=== PATIENT | male | born 1990 | race African-American/Black ===

== ENCOUNTER 2019-11-04 06:57 | Emergency (ER) | payer OTHER ==
[~2019-11-04] VITALS: Ht 195.6 cm; Wt 99.8 kg
[2019-11-04 07:35] LABS: ABSOLUTE EOSINOPHILS 0.2 thou/uL (0.0-0.7); ABSOLUTE LYMPHOCYTES 1.9 thou/uL (0.8-5.3); ABSOLUTE MONOCYTES 0.8 thou/uL (0.0-1.2); ABSOLUTE NEUTROPHILS 6.7 thou/uL (1.6-8.1); BASOPHILS 0.3 %; EOSINOPHILS 2.2 %; HEMATOCRIT 42.7 % (42.0-52.0); HEMOGLOBIN 14.6 gm/dL (14.0-18.0); LYMPHOCYTES 20.3 %; MCH 30.5 pg (26.0-34.0); MCHC 34.2 g/dL (28.0-37.0); MCV 89.3 fL (80.0-100.0); MONOCYTES 7.9 %; MPV 8.9 fl. (7.2-11.1); NUCLEATED RBCS 0 /100WBC; PLATELET COUNT* 224 thou/uL (150-400); POLYS 69.3 %; RBC 4.78 mil/uL (4.50-6.00); RDW-CV 13.6 % (10.5-14.5); WBC 9.6 thou/uL (4.0-11.0)
[2019-11-04 07:49] LABS: CALCIUM 8.4 mg/dL (8.5-10.1); CREATININE 1.3 mg/dL (0.6-1.3); POTASSIUM 3.6 mmol/L (3.5-5.1)
[2019-11-04 07:59] LABS: ALBUMIN 3.9 g/dL (3.4-5.0); TOTAL BILIRUBIN 0.5 mg/dL (<0.1-1.0); TOTAL PROTEIN 7.4 g/dL (6.4-8.2)
[2019-11-04 08:27] VITALS: BP 118/70
--- NOTE | 2019-11-04 14:17 | EKG ---
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1990 Requested By: Garrison Hillman Order Number: [id number] MD: Christian Blake Measurements Intervals [place] Rate: 75 P: 97 CO: 183 QRS: 92 QRSD: 99 T: 27 QT: 393 QTc: 439 Interpretive Statements Sinus rhythm Ventricular premature complex Borderline right axis deviation No previous ECG available for comparison Electronically Signed On 11-04-2019 14:16:07 CDT by Christian Blake [email or web address] <ELECTRONICALLY SIGNED> By: Christian Blake MD, [facility] 11/04/19 1416 4 4 Christian Blake MD, FACC /EPI
== END 2019-11-04 08:28 | disposition home or self-care (01) ==
LOC: M.ERS 06:57
PROVIDERS: Family Medicine
DX: R56.9 Unspecified convulsions (principal); I48.91 Unspecified atrial fibrillation

== ENCOUNTER 2019-11-05 06:17 | Observation (INO) | payer OTHER ==
[~2019-11-05] VITALS: Ht 182.9 cm; Wt 72.6 kg
--- NOTE | 2019-11-05 08:06 | NUR ---
SEE DOWNTIME DOCUMENTATION FOR FURTHER DOCUMENTATION
[2019-11-05 08:10] LABS: ABSOLUTE BASOPHILS 0.1 thou/uL (0.0-0.2); ABSOLUTE EOSINOPHILS 0.1 thou/uL (0.0-0.7); ABSOLUTE LYMPHOCYTES 1.9 thou/uL (0.8-5.3); ABSOLUTE MONOCYTES 1.2 thou/uL (0.0-1.2); ABSOLUTE NEUTROPHILS 9.5 thou/uL (1.6-8.1); BASOPHILS 0.7 %; EOSINOPHILS 0.8 %; HEMATOCRIT 46.3 % (42.0-52.0); HEMOGLOBIN 15.5 gm/dL (14.0-18.0); LYMPHOCYTES 14.9 %; MCH 29.7 pg (26.0-34.0); MCHC 33.5 g/dL (28.0-37.0); MCV 88.6 fL (80.0-100.0); MONOCYTES 9.2 %; MPV 9.4 fl. (7.2-11.1); NUCLEATED RBCS 0 /100WBC; PLATELET COUNT* 240 thou/uL (150-400); POLYS 74.4 %; RBC 5.23 mil/uL (4.50-6.00); RDW-CV 14.1 % (10.5-14.5); WBC 12.8 thou/uL (4.0-11.0)
[2019-11-05 08:18] LABS: APTT 26.4 Seconds (25.0-31.3); PROTIME 10.5 Seconds (9.20-11.50)
[2019-11-05 08:22] LABS: URINE BILIRUBIN NEGATIVE (Negative); URINE BLOOD NEGATIVE (Negative); URINE CLARITY CLEAR; URINE COLOR YELLOW; URINE GLUCOSE-RANDOM NEGATIVE (Negative); URINE KETONES TRACE (Negative); URINE LEUKOCYTES-REFLEX NEGATIVE (Negative); URINE NITRITE-REFLEX NEGATIVE (Negative); URINE PROTEIN NEGATIVE (Negative); URINE SPECIFIC GRAVITY 1.025 (1.005-1.030); URINE UROBILINOGEN 0.2 E.U./dl (0.2-1.0)
[2019-11-05 08:29] LABS: AMP/METHAMP Negative (Negative); BARBITURATES Negative (Negative); BENZODIAZEPINES Negative (Negative); COCAINE Negative (Negative); METHADONE Negative (Negative); OPIATES Negative (Negative); PCP Negative (Negative); THC POSITIVE (Negative)
[2019-11-05 08:31] LABS: ALBUMIN 3.9 g/dL (3.4-5.0); CALCIUM 8.3 mg/dL (8.5-10.1); CREATININE 1.2 mg/dL (0.6-1.3); POTASSIUM 3.7 mmol/L (3.5-5.1); TOTAL BILIRUBIN 0.5 mg/dL (<0.1-1.0); TOTAL PROTEIN 7.6 g/dL (6.4-8.2)
--- NOTE | 2019-11-05 09:57 | NUR ---
PT HAD A WITNESSED GRAND MAL SEIZURE AT 0920, PULLED IV OUT OF LAC AND NEW IV INITIATED AT 20G R FOREARM. PT CONFUSED AT THIS TIME, POSTLICTAL STATE. INITIAL SEIZURE LASTED 30 SECONDS
[2019-11-05 10:02] LABS: CHOLESTEROL 226 mg/dL (<200); HDL CHOLESTEROL 79 mg/dL (>40); LDL CHOLESTEROL 137 mg/dL (<100); TC:HDL 2.9 Ratio (Not establshd); TRIGLYCERIDE 53 mg/dL (<150); VLDL 11 mg/dL (<40)
[2019-11-05 10:03] LABS: SERUM ASSESSMENT Clear
--- NOTE | 2019-11-05 10:25 | EKG ---
[place] [address] ELECTROCARDIOGRAM REPORT Name: LANDRY LÓPEZ Room: [address] M.R.#: [id number] Admission: 11/05/19 Attend Phys: Arnoldo Tafoya Discharge: Date of : [birth year] Date of Service: 11/05/19618 Report #: [id number] THIS REPORT FOR: //name// [facility] ED Test Date: 2019-11-05 Test Time: 06:19:54 Pat Name: LANDRY LÓPEZ Department: Room: [facility] Gender: M Community Organizer: THIAGO : 1990 Requested By: Garrison Hillman Order Number: [id number] MD: Christian Blake Measurements Intervals [place] Rate: 127 P: MO: QRS: 101 QRSD: 91 T: -42 QT: 336 QTc: 489 Interpretive Statements Atrial flutter with predominant 2:1 AV block Borderline right axis deviation Nonspecific T abnormalities, inferior leads ST elev, probable normal early repol pattern Prolonged QT interval Baseline wander in lead(s) V1 Compared to ECG 11/04/2019 07:05:51 Prolonged QT interval now present Sinus rhythm no longer present Ventricular premature complex(es) no longer present Electronically Signed On 11-05-2019 10:24:30 CDT by Christian Blake [email or web address] <ELECTRONICALLY SIGNED> By: Christian Blake MD, [facility] 11/05/19 1024 8 8 Christian Blake MD, [facility] /EPI
--- NOTE | 2019-11-05 10:53 | NUR ---
PT PLACED ON HOSPITAL BED, SEIZURE PADS APPLIED X2, CALL LIGHT WITHIN REACH. LIGHTS LOW TO DECREASE STIMULATION. PT STATES HE HAD TO VOID AND STATE TO PT HE CAN NOT GET OUT OF BED DUE TO FALL PRECAUTIONS/SAFETY, MUST USE URINAL. PT STATES HE CAN NOT USE URINAL STANDING UP, ENCOURAGED PT THAT HE WILL NEED TO USE URINAL LAYING/SITTING UP IN BED, PT HESITANT BUT VERBALIZES UNDERSTANDING
--- NOTE | 2019-11-05 11:03 | NUR ---
PT NONCOMPLIANT AND GOT OUT OF BED TO URINATE IN URINAL WITHOUT STAFF KNOWLEDGE. PT IN BED AT THIS TIME
[2019-11-05 14:00] VITALS: BP 106/64
[2019-11-05 15:18] VITALS: BP 102/56
--- NOTE | 2019-11-05 15:55 | NUR ---
PT ORIENTED TO ROOM AND UNIT, BED LOW AND LOCKED, SIDE RAILS UPX3. TELEL APPLIED AND SEIZURE PROTOCOL INITIATED. WILL CONTINUE TO ASSESS.
--- NOTE | 2019-11-05 16:51 | 2DMMODE ---
[place] [address] 2 D/M-MODE ECHOCARDIOGRAM Name: LANDRY LÓPEZ Room: [address] Christopher#: [id number] Admission: 11/05/19 Attend Phys: Arnoldo Tafoya Discharge: Date of : [birth year] Date of Service: 11/05/19 1650 Report #: [id number] THIS REPORT FOR: cc: FAM - No family physician/PCP FAM - No family physician/PCP Christian Blake MD [facility] ~ APPROVED REPORT Study performed: 11/05/2019 15:55:05 EXAM: Comprehensive 2D, Doppler, and color-flow Echocardiogram Patient Location: In-Patient BSA: 1.94 HR: 88 bpm BP: 102/56 mmHg Other Information Study Quality: Good Indications Abnormal ECG 2D Dimensions IVSd: 20.51 (7-11mm) LVOT Diam: 21.94 (18-24mm) LVDd: 40.04 mm PWd: 12.16 (7-11mm) Ascending Ao: 27.46 (22-36mm) LVDs: 31.50 (25-40mm) Aortic Root: 26.16 mm Volumes Left Atrial Volume (Systole) LA ESV Index: 22.40 mL/m2 Aortic Valve AoV Peak Brad.: 0.96 m/s AO Peak Gr.: 3.71 mmHg LVOT Max P.80 mmHg AO Mean Gr.: 2.11 mmHg LVOT Mean P.27 mmHg LVOT Max V: 0.84 m/s AO V2 VTI: 14.76 cm LVOT Mean V: 0.51 m/s KANDIS (VTI): 3.62 cm2 LVOT V1 VTI: 14.14 cm Mitral Valve E/A Ratio: 1.88 [place] [address] 2 D/M-MODE [facility]ARDIOGRAM [facility] Room: [address] Erin White#: [id number] Admission: 11/05/19 Attend Phys: Arnoldo Tafoya Discharge: Date of : 89 Date of Service: 11/05/19 1650 Report #: [id number] MV Decel. Time: 217.71 ms MV E Max Brad.: 0.69 m/s MV PHT: 63.14 ms MVA (PHT): 3.48 cm2 TDI E/Lateral E': 4.31 E/Medial E': 4.93 Medial E' Brad.: 0.14 m/s Lateral E' Brad.: 0.16 m/s Pulmonary Valve PV Peak Brad.: 0.73 m/s PV Peak Gr.: 2.11 mmHg Tricuspid Valve RAP Estimate: 5.00 mmHg TR Peak Gr.: 9.91 mmHg RVSP: 14.91 mmHg PA Pressure: 14.91 mmHg Left Ventricle The left ventricle is normal size. There is normal LV segmental wall motion. Concentric left ventricular hypertrophy. Left ventricular systolic function is normal. The left ventricular ejection fraction is within the normal range. LVEF is 55-60%. Right Ventricle The right ventricle is normal size. The right ventricular systolic function is normal. Atria The left atrium size is normal. The right atrium size is normal. Aortic Valve The aortic valve is normal in structure. No aortic regurgitation is present. There is no aortic valvular stenosis. Mitral Valve The mitral valve is normal in structure. There is no mitral valve regurgitation noted. No evidence of mitral valve stenosis. Tricuspid Valve The tricuspid valve is normal in structure. Trace tricuspid regurgitation. Pulmonic Valve The pulmonary valve is normal in structure[place] [address] 2 D/M-MODE ECHOCARDIOGRAM Name: LANDRY LÓPEZ [address] [id number] Admission: 11/05/19 Attend Phys: Arnoldo Tafoya Discharge: Date of : 89 Date of Service: 11/05/19 1650 Report #: [id number] regurgitation. Great Vessels The aortic root is normal in size. IVC is normal in size and collapses >50% with inspiration. Pericardium There is no pericardial effusion. <Conclusion> Concentric left ventricular hypertrophy. LVEF is 55-60%. <ELECTRONICALLY SIGNED> By: Christian Blake MD, FACC 11/05/191649 49 49 Christian Blake MD, FAC /INF
--- NOTE | 2019-11-05 16:58 | CON ---
[address] [address] CONSULTATION Name: LANDRY LÓPEZ Room: [address] M.R.#: [id number] Admission: 11/05/19 Attend Phys: Collins Gomez Discharge: Date of : 89 Report #: [id number] THIS REPORT FOR: //name// cc: KEDAR Rojas family physician/PCP KEDAR - Crystal family physician/PCP ~ THIS REPORT FOR: //name// CC: KEDAR physician/PCP Arnoldo Tafoya DATE OF SERVICE: 11/05/2019 CARDIOLOGY CONSULTATION HISTORY OF PRESENT ILLNESS: The patient is a 29-year-old black male who I was asked to see in the Emergency Room today after he had an episode of atrial flutter. Unfortunately, the patient has never been here to [place] before. He was brought to the Emergency Room 2 days ago by ambulance. At home, he was felt to have a seizure. The patient has been cared for at [facility] in the past. The patient also has a history of atrial fibrillation and was on metoprolol in the past. He was actually sent home, but returned today and had a seizure in the Emergency Room. ECG showed atrial flutter. I was asked to see him for further evaluation and treatment. At this time, he denies any complaints. PAST MEDICAL HISTORY: Otherwise, unremarkable. MEDICATIONS: He is currently on no medications. ALLERGIES: He has no known drug allergies. SOCIAL HISTORY: He does drink alcohol. He uses THC. REVIEW OF SYSTEMS: No history of stroke, recent fever, chest pain, or shortness of breath. PHYSICAL EXAMINATION: GENERAL: Revealed a middle-aged black male, lying in bed, appeared in no distress. He was drowsy at this time. VITAL SIGNS: He had a blood pressure of 110/60, pulse is 80. He is afebrile. HEENT: He was anicteric. Conjunctivae are pink. Mucous membranes are moist. CHEST: Clear to auscultation. CARDIOVASCULAR: Regular rate and rhythm. ABDOMEN: Soft. EXTREMITIES: Had no edema. SKIN: [place] [address] CONSULTATION Name: LANDRY LÓPEZ Room: [address] M.R.#: [id number] Admission: 11/05/19 Attend Phys: Collins Gomez Discharge: Date of : 89 Report #: [id number] DIAGNOSTIC DATA: ECG on admission showed atrial flutter, 2:1 ventricular response rate, nonspecific ST-segment changes. He had CT scan of the head without contrast that showed no acute abnormality. Carotid Doppler study performed that showed only plaque formation. Chest x-ray, normal heart size, clear lung yu. LABORATORY DATA: Sodium 139, creatinine 1.2. Liver function studies were normal. His LDL was 137. White blood cell count 12.8, hemoglobin 15.5. Urine drug screen positive for marijuana. IMPRESSION AND RECOMMENDATIONS: 1. Atrial flutter. Previous history of atrial fibrillation. Possibly alcohol related. I would recommend an echocardiogram. 2. History of seizures. 3. History of alcohol use. 4. History of illicit drug use. <ELECTRONICALLY SIGNED> By: Christian Blake MD, [facility] 11/05/19 1658 1502 [id number] Moose Blake MD, FAC /nt
[2019-11-05 19:30] VITALS: BP 119/72
--- NOTE | 2019-11-05 23:03 | NUR ---
ASSUMED CARE OF PT AT 1900. PT IS ALERT AND ORIENTED. VSS. PERRLA NO COMPLAINTS OF PAIN. STEADY GAIT. PT IS IN SINUS RYTHM ON THE TELEMETRY. PT IS RESTING COMFORTABLY IN BED. RESPIRATIONS ARE EVEN AND NONLABORED. WILL CONTINUE TO MONITOR PT.
[2019-11-06] VITALS: BP 117/58
[2019-11-06 04:00] VITALS: BP 130/69
[2019-11-06 04:12] LABS: GLYCOHEMOGLOBIN (HGB A1C) 5.8 % (4.8-5.6)
[2019-11-06 06:14] LABS: ABSOLUTE BASOPHILS 0.1 thou/uL (0.0-0.2); ABSOLUTE EOSINOPHILS 0.2 thou/uL (0.0-0.7); ABSOLUTE LYMPHOCYTES 2.5 thou/uL (0.8-5.3); ABSOLUTE MONOCYTES 0.8 thou/uL (0.0-1.2); ABSOLUTE NEUTROPHILS 4.9 thou/uL (1.6-8.1); BASOPHILS 0.6 %; EOSINOPHILS 2.8 %; HEMATOCRIT 40.5 % (42.0-52.0); HEMOGLOBIN 13.7 gm/dL (14.0-18.0); LYMPHOCYTES 29.1 %; MCH 29.9 pg (26.0-34.0); MCHC 33.8 g/dL (28.0-37.0); MCV 88.2 fL (80.0-100.0); MONOCYTES 9.2 %; MPV 9.9 fl. (7.2-11.1); NUCLEATED RBCS 0 /100WBC; PLATELET COUNT* 224 thou/uL (150-400); POLYS 58.3 %; RBC 4.59 mil/uL (4.50-6.00); RDW-CV 13.7 % (10.5-14.5); WBC 8.5 thou/uL (4.0-11.0)
[2019-11-06 06:31] LABS: ALBUMIN 3.5 g/dL (3.4-5.0); CREATININE 1.1 mg/dL (0.6-1.3); POTASSIUM 3.2 mmol/L (3.5-5.1); TOTAL BILIRUBIN 0.7 mg/dL (<0.1-1.0); TOTAL PROTEIN 6.8 g/dL (6.4-8.2)
[2019-11-06 08:00] VITALS: BP 103/69
--- NOTE | 2019-11-06 10:27 | EKG ---
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: LUZ : 1990 Requested By: Christian Blake Order Number: [id number] Reading MD: Christian Blake Measurements Intervals [place] Rate: 75 P: 85 [place]: 172 QRS: 93 QRSD: 95 T: 36 QT: 390 QTc: 436 Interpretive Statements Sinus rhythm Borderline right axis deviation Compared to ECG 11/05/2019 06:19:54 Atrial flutter no longer present ST (T wave) deviation no longer present Prolonged QT interval no longer present Electronically Signed On 11-06-2019 10:26:41 CDT by Christian Blake [email or web address] <ELECTRONICALLY SIGNED> By: Christian Blake MD, [facility] 11/06/19 1026 0903 0903 Christian Blake MD, [facility] /EPI
[2019-11-06 13:24] VITALS: BP 109/64
[2019-11-06] MEDS ORDERED: KEPPRA XR500 MG PO (14:13)
[2019-11-06] MEDS ORDERED: AUGMENTIN 875-1 EACH PO (14:13)
--- NOTE | 2019-11-06 14:28 | NUR ---
Pt is A&O. Resides at home with his SO. Independent. No DME. No hx of HH or SNF. Pt anxious to dc home. CM printed out application that Pt sent to CM's email, Pt plans on applying for insurance through the marketplace.
[2019-11-06 14:51] VITALS: BP 109/64
--- NOTE | 2019-11-06 15:09 | NUR ---
ASSUMED PT CARE REPORT RECEIVED FROM NURSE PT IS AOX4. NO SEIZURE BEING NOTICED. ON RA. NORMAL SALINE INFUSING AT 100CC PER HOUR. TRACING SR ON ENGLISH LANGUAGE LEARNER TEACHER. AWAITING FOR NEUROLOGY TO COME IN AND MAKE RECOMMENDATION. MRI NOT DONE THIS SHIFT DUE TO THE SYSTEM THAT IS DOWN. PT UP STAND BY ASSIST TO RESTRROM. SEIZURE PRECAUTION IN PLACE. KEPPRA GIVEN. POTASSIUM REPLACED. IV ROCEPHIN GIVEN ORDERED. NO FURTHER COMPLAINT. DISCHARGE IS ORDERED PER HOSPITALIST. THIS NURSE CONTACTED NEUROLOGIST TO ASK ABOUT HIS RECOMMENDATION. NEURO DR STATES THAT HE WILL BE AROUND, BUT CANNOT GIVE A TIME. WILL CONTINUE TO MONITOR PT
[2019-11-07] VITALS: BP 117/65
[2019-11-07 04:00] VITALS: BP 125/70
--- NOTE | 2019-11-07 06:36 | NUR ---
ASSUMED PT CARE AT 1905. PT VOICED NO CONCERNS THIS SHIFT. SR/SB ON MECHANICAL SERVICE SPECIALIST THIS SHIFT. HOURLY ROUNDING COMPLETED. NO SEIZURE LIKE ACTIVITY THIS SHIFT. CALL LIGHT WITHIN REACH. AWAITING MRI TO BE COMPLETED THIS AM.
[2019-11-07 07:47] VITALS: BP 120/77
[2019-11-07 08:01] LABS: ABSOLUTE EOSINOPHILS 0.3 thou/uL (0.0-0.7); ABSOLUTE LYMPHOCYTES 2.2 thou/uL (0.8-5.3); ABSOLUTE MONOCYTES 0.6 thou/uL (0.0-1.2); ABSOLUTE NEUTROPHILS 3.7 thou/uL (1.6-8.1); BASOPHILS 0.7 %; EOSINOPHILS 4.6 %; HEMATOCRIT 41.9 % (42.0-52.0); HEMOGLOBIN 14.3 gm/dL (14.0-18.0); LYMPHOCYTES 31.7 %; MCH 29.8 pg (26.0-34.0); MCHC 34.2 g/dL (28.0-37.0); NUCLEATED RBCS 0 /100WBC; PLATELET COUNT* 241 thou/uL (150-400); RBC 4.81 mil/uL (4.50-6.00); RDW-CV 14.1 % (10.5-14.5); WBC 6.8 thou/uL (4.0-11.0)
[2019-11-07 08:29] LABS: ALBUMIN 3.6 g/dL (3.4-5.0); CALCIUM 8.4 mg/dL (8.5-10.1); CREATININE 1.1 mg/dL (0.6-1.3); POTASSIUM 3.8 mmol/L (3.5-5.1); TOTAL BILIRUBIN 0.7 mg/dL (<0.1-1.0); TOTAL PROTEIN 7.1 g/dL (6.4-8.2)
--- NOTE | 2019-11-07 08:58 | NUR ---
ASSUMED CARE OF PT THIS AM AROUND 0715- TUBE REPAIRER IN PLACE ORDERED, TRACING SR- UPON ASSESSMENT PT NOTED TO BE RESTING IN BED, WATCHING TV- PT A&O X4- CONT OF BOWEL AND BLADDER- UP AD-JONATHAN IN ROOM WITH STEADY GAIT NOTED- SEIZURE PRECAUTIONS IN PLACE INDICATED WITH PADDED RAILS- LCTA, RESP EVEN AND UN-LABORED- VSS, O2 SAT 99% ON RA- ABD SOFT/ROUND/NON-TENDER, BS X4 QUADS- IV NOTED TO RIGHT FA INTACT AND SL, IV ABT GIVEN THIS AM PRESCRIBED- GOOD PO INTAKE NOTED THIS SHIFT WITH BREAKFAST- MRI ORDERED AND PENDING MRI BEING FIXED AT THIS TIME- PT DENIES ANY C/O PAIN/DISCOMFORT AT THIS TIME- CALL LIGHT AND PERSONAL BELONGINGS WITH IN REACH- PT MAKES NEEDS KNOWN- ALL NEEDS MET AT THIS TIME-WCTM
--- NOTE | 2019-11-11 12:39 | CON ---
[address] [address] CONSULTATION Name: LANDRY LÓPEZ Room: [address] Erin White#: [id number] Admission: 11/05/19 Attend Phys: Collins Gomez Discharge: 11/07/19 Date of : [birth year] Report #: [id number] THIS REPORT FOR: //name// cc: KEDAR - No family physician/PCP KEDAR - No family physician/PCP ~ THIS REPORT FOR: //name// CC: [facility] physician/PCP Arnoldo Tafoya DATE OF SERVICE: 11/05/2019 HISTORY OF PRESENT ILLNESS: This is a 29-year-old male patient who was evaluated by me for seizure. The patient is pretty quiet. He does not remember much about this episode. He apparently has been to multiple hospitals. I discussed the patient with Dr. Tafoya as well as Dr. Hillman from the Emergency Room. They witnessed a seizure and they gave him Keppra and he has not had any seizure further. He denies any drug use, although his drug screen is positive for marijuana. He says he does not smoke or drink any alcohol either. He does not talk much. History taking is difficult. He did have an EEG, which I reviewed and that does not show any seizure activity. REVIEW OF SYSTEMS: Indicate that he has some history of AFib according to the record. He does not know much about that. Rest of the 14-point review of system was mostly unremarkable. PAST MEDICAL HISTORY: Negative for seizure. He denies any stress. FAMILY HISTORY: Unremarkable. SOCIAL HISTORY: He says he does not drink. PHYSICAL EXAMINATION: NEUROLOGICAL: Indicate he is alert. He is responsive. He can follow simple commands when he wants to. He is sleepy. He wakes up. His neurological examination was difficult because of that, but he does not appear to have any definite abnormality. There is no meningeal sign. Carotid examinations appear unremarkable. VITAL SIGNS: Indicate a blood pressure of 106/64, respirations of 16, pulse of 84, and temperature of 98.7. His EKG has shown atrial flutter. Cardiology is consulted. LABORATORY DATA: His white count is 12.8. IMPRESSION: Clinically, the patient looks like he had a seizure[place] [address] CONSULTATION Name: [place] Room: [address] Erin White#: [id number] Admission: 11/05/19 Attend Phys: Collins Gomez Discharge: 11/07/19 Date of : 89 Report #: [id number] elevated. His white count is somewhat high, so these are all the features of seizure. Whether his atrial flutter has anything to do the seizure we are not certain. His EEG was okay. We will await the cardiology workup. I would like to get an MRI done. I discussed with them contrast and the potential side effect from contrast. He understands that he wants to proceed with that. We will see what the cardiology workup shows and see if an MRI shows anything. He needs to be monitored during the MRI. About 50 minutes of time was spent taking care of this patient today and majority was spent counseling and coordinating including talking to other health home day care provider. <ELECTRONICALLY SIGNED> By: Bart Roe MD 11/11/19 1239 1454 [id number] Roe MD /nt
--- NOTE | 2019-11-11 12:39 | EEG ---
[address] [address] EEG STUDY REPORT Name: LANDRY LÓPEZ Room: [address] M.R.#: [id number] Admission: 11/05/19 Attend Phys: Collins Gomez Discharge: 11/07/19 Date of : [birth year] Report #: [id number] THIS REPORT FOR: //name// CC: KEDAR physician/PCP Arnoldo Tafoya DATE OF SERVICE: 11/05/2019 This patient is being evaluated for seizure. EEG was done by placing the electrode by standard 10-20 system of electrode placement. Both referential and sequential montages were used for recording. Background activity in this patient's EEG is 11 Hz and 40 microvolts. There is a symmetrical activity. Photic stimulation is unremarkable. The patient was drowsy and went to sleep that is associated with bilateral slowing and vertex sharp waves. Throughout the record, no active epileptiform activity was noticed. IMPRESSION: This patient's EEG is within normal limits. It might be mentioned that EEG can be normal in a patient with seizure disorder. Thank you very much for this referral. <ELECTRONICALLY SIGNED> By: Bart Roe MD 11/11/19 1239 1236 [id number] Roe MD /nt
== END 2019-11-07 19:00 | disposition home or self-care (01) ==
LOC: M.ERS 06:17 → M.TBA-ER 09:05 → M.2W 09:05
PROVIDERS: Family Medicine; ADMIT Internal Medicine; ATTEND Internal Medicine
DX: R56.9 Unspecified convulsions (principal); M62.82 Rhabdomyolysis; I48.91 Unspecified atrial fibrillation; I48.92 Unspecified atrial flutter; F19.10 Other psychoactive substance abuse, uncomplicated; F10.10 Alcohol abuse, uncomplicated; J32.0 Chronic maxillary sinusitis; F12.10 Cannabis abuse, uncomplicated